=== PATIENT | male | born 1990 | race Two or more races ===

== ENCOUNTER 2016-10-17 13:50 | Emergency (ER) | payer BC ==
[~2016-10-17] VITALS: Ht 162.6 cm; Wt 77.1 kg
[2016-10-17] MEDS ORDERED: LORAZEPAM 1 MG TABLET ONE (14:18)
[2016-10-17] MEDS ORDERED: LORAZEPAM 1 MG TABLET PO ONE (14:30)
[2016-10-17 15:36] VITALS: BP 145/87
== END 2016-10-17 15:36 | disposition home or self-care (01) ==
LOC: ER 13:54
DX: R07.89 Other chest pain (principal); F41.9 Anxiety disorder, unspecified
CPT/HCPCS: A4606; Z7610

== ENCOUNTER 2016-12-03 10:50 | Emergency (ER) | payer BC ==
[~2016-12-03] VITALS: Ht 152.4 cm; Wt 77.1 kg
[2016-12-03 10:55] VITALS: BP 144/72
== END 2016-12-03 12:19 | disposition home or self-care (01) ==
LOC: ER 10:51
DX: R51 Headache (principal); F10.20 Alcohol dependence, uncomplicated
CPT/HCPCS: 70450; 99284; A4606; Z7610

== ENCOUNTER 2016-12-17 09:30 | Emergency (ER) | payer BC ==
[~2016-12-17] VITALS: Ht 165.1 cm; Wt 76.2 kg
--- NOTE | 2016-12-17 09:41 | NUR ---
Pt bib self with family headache x 2 weeks no trauma. Pt taking ibuprofen no relief. Placed on monitor. VSS. Awaiting md order. Placed on safety precaution.
--- NOTE | 2016-12-17 09:55 | NUR ---
RAC#[id number] IV ACCESS. BLOOD SAMPLE COLLECTED SENT TO LAB.
[2016-12-17] MEDS ORDERED: IV SET PRIMARY PUMP SET 1 EA INFUS.SET MC ONE (10:26)
[2016-12-17] MEDS ORDERED: diphenhydrAMINE HCL 50 MG/ML VIAL ONE (10:26)
[2016-12-17] MEDS ORDERED: IV NS 0.9% 1,000 ML ONE (10:26)
[2016-12-17] MEDS ORDERED: ONDANSETRON HCL/PF 4 MG/2 ML VIAL ONE (10:26)
[2016-12-17] MEDS ORDERED: KETOROLAC TROMETHAMINE INJ 30 MG/ML VIAL ONE (10:26)
[2016-12-17] MEDS ORDERED: diphenhydrAMINE HCL 50 MG/ML VIAL IV ONE (10:30)
[2016-12-17] MEDS ORDERED: IV NS 0.9% 1,000 ML BAG IV ONE (10:30)
[2016-12-17] MEDS ORDERED: ONDANSETRON HCL/PF - ER 4 MG/2 ML VIAL IV ONE (10:30)
[2016-12-17] MEDS ORDERED: KETOROLAC TROMETHAMINE INJ 30 MG/ML VIAL IV ONE (10:30)
[2016-12-17 10:39] LABS: BASOPHILS # (AUTO) 0.1 /CMM (0.0-0.2); BASOPHILS % (AUTO) 0.9 % (0.0-2.0); EOSINOPHILS # (AUTO) 0.1 /CMM (0.0-0.7); HEMATOCRIT 48 % (39-51); HEMOGLOBIN 16.7 g/dL (13.5-17.5); LYMPHOCYTES # (AUTO) 1.7 /CMM (0.8-4.8); LYMPHOCYTES % (AUTO) 25.7 % (20.0-44.0); MEAN CORPUSCULAR HEMOGLOBIN 31 PG (26.0-33.0); MEAN CORPUSCULAR HGB CONC 35 g/dl (31.0-36.0); MEAN CORPUSCULAR VOLUME 90 fL (80-96); MONOCYTES # (AUTO) 0.3 /CMM (0.1-1.30); MONOCYTES % (AUTO) 4.6 % (2.0-12.0); NEUTROPHILS # (AUTO) 4.5 /CMM (1.8-8.9); NEUTROPHILS % (AUTO) 67.8 % (43.0-81.0); PLATELET COUNT (AUTO) 208 /CMM (150-450); RDW COEFFICIENT OF VARIATION 12.2 (11.5-15.0); RED BLOOD CELL COUNT(AUTO) 5.37 MIL/uL (4.5-6.0); WHITE BLOOD COUNT (AUTO) 6.7 K/uL (4.3-11.0)
[2016-12-17 10:47] LABS: CALCIUM, SERUM 9.1 mg/dL (8.5-10.1); POTASSIUM 4.3 mmol/L (3.5-5.1)
--- NOTE | 2016-12-17 10:47 | NUR ---
PT TAKEN CT VIA WHEELCHAIR
[2016-12-17 10:53] LABS: ALBUMIN 3.8 g/dL (3.4-5.0); BILIRUBIN,TOTAL 0.3 mg/dL (0.2-1.0); TOTAL PROTEIN, SERUM 7.6 g/dL (6.4-8.2)
--- NOTE | 2016-12-17 11:58 | NUR ---
IV removed. Catheter intact and site benign. Pressure and 4x4 applied to site. No bleeding noted. Patient discharged to home in stable condition. Written and verbal after care instructions given. Patient verbalizes understanding of instruction. Prescription given to patient.
[2016-12-17 11:59] VITALS: BP 135/70
== END 2016-12-17 12:05 | disposition home or self-care (01) ==
LOC: ER 09:31
DX: R51 Headache (principal)
CPT/HCPCS: 36415; 70450; 80053; 85025; 96361; 96374; 96375; 99285; A4606; J1200; J1885; J2405; J7030; Z7610

== ENCOUNTER 2017-05-03 12:21 | Emergency (ER) | payer BC ==
[~2017-05-03] VITALS: Ht 162.6 cm; Wt 77.1 kg
--- NOTE | 2017-05-03 12:25 | NUR ---
AAOX3, CAME TO ER C/O SUDDEN LEFT ARM/SHOULDER PAIN, ALSO C/O TINGLING SENSATION OF LEFT HAND AFTER HYPERVENTILATING. SKIN IS WARM AND DRY. PATIENT APPEARS CALM AND STABLE AT THIS TIME. AWAITING MD FOR EVAL.
[2017-05-03] MEDS ORDERED: IBUPROFEN 400 MG TABLET ONE (12:53)
[2017-05-03] MEDS ORDERED: IBUPROFEN 400 MG TABLET PO ONE (13:00)
--- NOTE | 2017-05-03 13:07 | NUR ---
XRAY AT BS
--- NOTE | 2017-05-03 13:35 | NUR ---
Patient discharged to home in stable condition. Written and verbal after care instructions given. Patient verbalizes understanding of instruction.
[2017-05-03 13:36] VITALS: BP 130/75
== END 2017-05-03 13:37 | disposition home or self-care (01) ==
LOC: ER 12:26
DX: M25.512 Pain in left shoulder (principal)
CPT/HCPCS: 73030; 93005; 99284; A4606; Z7610